=== PATIENT | female | born 1960 | race African-American/Black ===

== ENCOUNTER 2022-04-28 16:42 | Emergency (ER) | payer MEDICAID ==
[~2022-04-28] VITALS: Ht 160 cm; Wt 122.0 kg
[2022-04-28] MEDS ORDERED: MORPHINE SULFATE 4 MG/ML CPJ (NOT FOR IM USE) IV STA (17:59)
[2022-04-28 18:34] LABS: BASOPHILS % 0.7 % (0.0-2.0); EOSINOPHILS % 1.8 % (0.0-5.0); HEMATOCRIT. 39.9 % (36.0-48.0); LYMPHOCYTES % 23.3 % (20.0-50.0); MEAN CORPUSCULAR HEMOGLOBIN 26.3 pg (28.0-32.0); MEAN PLATELET VOLUME 7.9 fl (7.4-10.4); MONOCYTES % 8.4 % (2.0-8.0); NEUTROPHILS % 65.8 % (40.0-76.0); PLATELET 247 x1000/uL (130-400); RED BLOOD CELL COUNT 4.93 mill/uL (4.2-5.4); RED CELL DISTRIBUTION WIDTH 15.3 % (11.6-14.6)
[2022-04-28 18:43] LABS: PROTHROMBIN TIME 10.9 sec (9.6-11.0)
[2022-04-28 18:45] LABS: CHLORIDE 108 mEq/L (98-107)
[2022-04-28 18:53] LABS: CLARITY URINE CLOUDY (CLEAR); COLOR URINE YELLOW (YELLOW); KETONES URINE TRACE (NEGATIVE); LEUKOCYTE ESTERASE URINE NEGATIVE (NEGATIVE); NITRITE URINE NEGATIVE (NEGATIVE); OCCULT BLOOD URINE NEGATIVE (NEGATIVE); PROTEIN URINE TRACE (NEGATIVE); SPECIFIC GRAVITY URINE 1.026 (1.005-1.030)
[2022-04-28] MEDS ORDERED: KETOROLAC 15MG/ML VIAL IV ONE (19:15)
[2022-04-28] MEDS ORDERED: LORAZEPAM 0.5MG TABLET PO ONE (19:15)
[2022-04-28 20:40] VITALS: BP 111/88
[2022-04-28] MEDS ORDERED: IBUP-2029 MT (21:28)
[2022-04-28] MEDS ORDERED: CYCL10TA21 MT (21:28)
== END 2022-04-28 21:41 | disposition home or self-care (01) ==
LOC: ER 17:08
DX: M54.50 Low back pain, unspecified (principal); E11.9 Type 2 diabetes mellitus without complications; I10 Essential (primary) hypertension
CPT/HCPCS: 36415; 74176; 80053; 81003; 83690; 85025; 85610; 96374; 99285; C1893; J1885; Z7610; J2270; A4315